=== PATIENT | male | born 1930 | race Caucasian/White ===

== ENCOUNTER 2018-12-05 19:47 | Emergency (ER) | payer OTHER ==
[~2018-12-05] VITALS: Ht 170.2 cm; Wt 77.1 kg
[~2018-12-05 19:47] MED LIST: ADVAIR 500-501 EACH IH; ALBUTEROL INHAL17 GM IH; ALBUTEROL2.5 MG/31 INH; ASPIRIN325 PO; CALCIUM 600 +1 EAC5 PO; CLARITIN10 MG PO; GARLIC OIL1 EAC1 PO; GARLIC OIL1000 MG PO; MULTIVITAMINS PO; NASONEX17 GM NASAL; NORCO 5-325 TA1 EACH PO; PREDNISONE 10 M10 MG PO; PROAIR HFA8.5 GM INH; SIMVASTATIN40 MG PO; SPIRIVA INH; SYMBICORT160 MCG/4. IH; SYMBICORT160 MCG/4. INH; VERAMYST10 GM IH; ZOCOR 10 MG TAB10 MG PO
[2018-12-05] MEDS ORDERED: BAYER CHEWABLE81 MG PO (20:04)
[2018-12-05] MEDS ORDERED: COZAAR 25 MG TA25 M1 PO (20:06)
[2018-12-05] MEDS ORDERED: BREO ELLIPTA 11 EACH INH (20:07)
[2018-12-05] MEDS ORDERED: COLACE100 MG PO (20:07)
[2018-12-05] MEDS ORDERED: CALCIUM 600 +1 EAC4 PO (20:08)
[2018-12-05] MEDS ORDERED: ALEVE220 MG PO (20:08)
[2018-12-05 20:44] LABS: URINE BILIRUBIN NEGATIVE (Negative); URINE BLOOD 2+ (Negative); URINE CLARITY CLEAR; URINE COLOR YELLOW; URINE GLUCOSE-RANDOM* NEGATIVE (Negative); URINE KETONES NEGATIVE (Negative); URINE NITRITE-REFLEX NEGATIVE (Negative); URINE PROTEIN (DIPSTICK) NEGATIVE (Negative); URINE SPECIFIC GRAVITY > 1.030 (1.005-1.035); URINE UROBILINOGEN 0.2 E.U./dl (0.2-1.0)
[2018-12-05 20:45] LABS: URINE LEUKOCYTES-REFLEX NEGATIVE (Negative)
[2018-12-05 20:48] LABS: CASTS None Seen /LPF (None Seen); SQUAMOUS 0-3 Few /LPF (0-3)
[2018-12-05 20:49] LABS: BACTERIA-REFLEX None Seen /HPF (None Seen); CRYSTALS None Seen /LPF (None Seen); MUCUS 4-6 Moderate strn/LPF (None Seen); URINE RBC 3-10 Few /HPF (0-2); URINE WBC-REFLEX 0-5 Rare /HPF (0-5)
[2018-12-05] MEDS ORDERED: FLOMAX0.4 MG PO (20:55)
[2018-12-05 21:12] VITALS: BP 138/60
== END 2018-12-05 21:12 | disposition home or self-care (01) ==
LOC: ER 19:47
PROVIDERS: Emergency Medicine
DX: R33.9 Retention of urine, unspecified (principal)

== ENCOUNTER 2018-12-12 03:23 | Emergency (ER) | payer OTHER ==
[~2018-12-12] VITALS: Ht 170.2 cm; Wt 79.4 kg
[~2018-12-12 03:23] MED LIST changes: +ALEVE220 MG PO; +BAYER CHEWABLE81 MG PO; +BREO ELLIPTA 11 EACH INH; +CALCIUM 600 +1 EAC4 PO; +COLACE100 MG PO; +COZAAR 25 MG TA25 M1 PO; +FLOMAX0.4 MG PO
[2018-12-12 04:00] VITALS: BP 103/82
== END 2018-12-12 04:32 | disposition home or self-care (01) ==
LOC: ER 03:23
DX: T83.038A Leakage of other urinary catheter, initial encounter (principal); E89.0 Postprocedural hypothyroidism; Z98.890 Other specified postprocedural states

== ENCOUNTER 2019-07-07 17:26 | Emergency (ER) | payer OTHER ==
[~2019-07-07] VITALS: Ht 170.2 cm; Wt 78.6 kg
[2019-07-07 18:55] VITALS: BP 150/59
== END 2019-07-07 18:56 | disposition home or self-care (01) ==
LOC: ER 17:26
DX: N40.1 Benign prostatic hyperplasia with lower urinary tract symptoms (principal); R33.8 Other retention of urine; Z87.891 Personal history of nicotine dependence

== ENCOUNTER 2019-09-15 08:04 | Emergency (ER) | payer OTHER ==
[~2019-09-15] VITALS: Ht 165.1 cm; Wt 77.1 kg
[2019-09-15] MEDS ORDERED: TESSALON PERLE100 MG PO (09:10)
[2019-09-15 09:31] VITALS: BP 144/53
== END 2019-09-15 09:32 | disposition home or self-care (01) ==
LOC: ER 08:04
DX: J06.9 Acute upper respiratory infection, unspecified (principal); Z87.891 Personal history of nicotine dependence

== ENCOUNTER 2019-12-14 16:12 | Inpatient (IN) | payer OTHER ==
[~2019-12-14] VITALS: Ht 172.7 cm; Wt 80.9 kg
[~2019-12-14 16:12] MED LIST changes: +TESSALON PERLE100 MG PO
[2019-12-14 16:30] LABS: ABSOLUTE NEUTROPHILS 6.3 thou/uL (1.4-8.2); BASOPHILS 0.9 % (0.0-2.0); EOSINOPHILS 4.1 % (0.0-3.0); HEMATOCRIT 42.3 % (42.0-52.0); HEMOGLOBIN 14.2 gm/dL (14.0-18.0); LYMPHOCYTES 10.3 % (24.0-44.0); MCH 32.2 pg (26.0-34.0); MCHC 33.7 g/dL (28.0-37.0); MCV 95.7 fL (80.0-100.0); MONOCYTES 9.3 % (1.0-8.0); PLATELET COUNT 258 thou/uL (150-400); POLYS 75.4 % (36.0-66.0); RBC 4.42 mil/uL (4.50-6.00); RDW 14.1 % (10.5-14.5); WBC 8.4 thou/uL (4.0-11.0)
[2019-12-14 16:38] LABS: ANION GAP 8 mmol/L (7-16); BUN 14 mg/dL (7-18); CALCIUM 9.3 mg/dL (8.5-10.1); CHLORIDE 99 mmol/L (98-107); CO2 26 mmol/L (21-32); CREATININE 0.9 mg/dL (0.7-1.3); GLUCOSE 96 mg/dL (74-106); POTASSIUM 4.6 mmol/L (3.5-5.1); SODIUM 133 mmol/L (136-145)
[2019-12-14 16:45] LABS: APTT 27.1 Seconds (24.5-32.8); PROTIME 10.2 Seconds (9.3-11.4)
[2019-12-14 16:48] LABS: ALBUMIN 3.6 g/dL (3.4-5.0); SGOT 23 U/L (15-37); SGPT 28 U/L (30-65); TOTAL BILIRUBIN 0.3 mg/dL (<0.1-1.0); TOTAL PROTEIN 6.8 g/dL (6.4-8.2); TROPONIN-I <0.06 ng/mL (<0.06)
[2019-12-14 18:15] LABS: URINE BILIRUBIN NEGATIVE (Negative); URINE BLOOD TRACE (Negative); URINE CLARITY CLEAR; URINE COLOR YELLOW; URINE GLUCOSE-RANDOM* NEGATIVE (Negative); URINE KETONES NEGATIVE (Negative); URINE LEUKOCYTES-REFLEX NEGATIVE (Negative); URINE NITRITE-REFLEX NEGATIVE (Negative); URINE PROTEIN (DIPSTICK) NEGATIVE (Negative); URINE SPECIFIC GRAVITY 1.015 (1.005-1.035); URINE UROBILINOGEN 0.2 E.U./dl (0.2-1.0)
[2019-12-14 19:48] VITALS: BP 153/57
[2019-12-14 20:25] VITALS: BP 164/61
[2019-12-15 00:15] VITALS: BP 171/65
[2019-12-15 03:56] VITALS: BP 154/72
--- NOTE | 2019-12-15 05:29 | NUR ---
PT ARRIVED TO UNIT APPROX 2014. ADMISSION AND ASSESSMENT COMPLETED. PT LIVES HOME ALONE WITH SOME FRIENDS AND NEIGHBORS WHO CHECK UP ON HIM. HE IS A&Ox4 BUT EXTREMELY FORGETFUL AND A POOR HISTORIAN; HE DOESN'T KNOW MUCH ABOUT HIS MEDICAL HISTORY OR WHAT MEDS HE TAKES. FALL PREC IN PLACE, HE IS IMPULSIVE AND UP TO BSC EVERY 45 MIN TO AN HOUR TO URINATE; BLADDER SCAN POST-VOID SHOWED LESS THAN 150 ML. Q4 HOUR NIH SCALE COMPLETED, HAS A SLIGHT DRIFT TO LEFT LEG WITH GENERAL WEAKNESS ON STANDING BUT OTHERWISE SHOWS A SCORE OF ONE. BP ELEVATED, GAVE PRN HYDRALAZINE. HR INITIALLY SR IN 70'S BUT OVERNIGHT DROPPED INTO 50'S WITH FREQ PVC'S. PT HAS x3 SKIN TEARS ON HIS LEFT ARM FROM ALMOST FALLING AT HOME WHEN HIS LEGS GAVE OUT. HIS BUTTOCKS ARE RED/EXCORIATED AND HAS NUMEROUS BRUISES ALONG HIS ARMS, OTHERWISE SKIN IS INTACT. NO OTHER CONCERNS, WILL CONTINUE TO MONITOR.
[2019-12-15 06:12] LABS: ABSOLUTE NEUTROPHILS 7.5 thou/uL (1.4-8.2); BASOPHILS 0.9 % (0.0-2.0); EOSINOPHILS 2.4 % (0.0-3.0); HEMATOCRIT 44.9 % (42.0-52.0); LYMPHOCYTES 8.8 % (24.0-44.0); MCH 32.1 pg (26.0-34.0); MCHC 33.4 g/dL (28.0-37.0); MCV 96.1 fL (80.0-100.0); MONOCYTES 9.2 % (1.0-8.0); PLATELET COUNT 260 thou/uL (150-400); POLYS 78.7 % (36.0-66.0); RBC 4.67 mil/uL (4.50-6.00); RDW 13.7 % (10.5-14.5); WBC 9.5 thou/uL (4.0-11.0)
[2019-12-15 06:27] LABS: ANION GAP 12 mmol/L (7-16); BUN 12 mg/dL (7-18); CALCIUM 9.7 mg/dL (8.5-10.1); CHLORIDE 102 mmol/L (98-107); CHOLESTEROL 168 mg/dL (<200); CO2 22 mmol/L (21-32); CREATININE 0.7 mg/dL (0.7-1.3); GLUCOSE 112 mg/dL (74-106); HDL CHOLESTEROL 72 mg/dL (>40); LDL CHOLESTEROL 87 mg/dL (<100); MAGNESIUM 1.9 mg/dL (1.8-2.4); POTASSIUM 3.7 mmol/L (3.5-5.1); SODIUM 136 mmol/L (136-145); TC:HDL 2.3 Ratio (Not establshd); TRIGLYCERIDE 48 mg/dL (<150); VLDL 10 mg/dL (<40)
[2019-12-15 06:31] LABS: SERUM ASSESSMENT Clear
[2019-12-15 08:07] VITALS: BP 145/56
[2019-12-15 08:54] VITALS: BP 143/56
--- NOTE | 2019-12-15 12:03 | 2DMMODE ---
[facility] [place] [place] [address] 2 D/M-MODE ECHOCARDIOGRAM Name: DARRELL HARRISON Room #: 360-P ADM IN M.R.#: [id number] Admission: 12/14/19 Attend Phys: Albaro Mejía MD Discharge: Date of : 32 Report #: [id number] THIS REPORT FOR: cc: Yaya Chavez MD, Douglas James MD Lammoglia, Francisco J. MD ~ APPROVED REPORT Study performed: 12/15/2019 11:12:39 EXAM: Comprehensive 2D, Doppler, and color-flow Echocardiogram Patient Location: Echo lab Room #: 360 Status: routine BSA: 1.90 HR: 60 bpm BP: 143/56 mmHg Rhythm: NSR Other Information Study Quality: Adequate Indications TIA. Hx: Afib, COPD, HTN, HLP. Echo Enhancing Agent Indication: Rule out Shunt Agent(s) / Amount(s) Used: Agitated Saline 6 cc 2D Dimensions RVDd: 32.95 mm IVSd: 12.00 (7-11mm) LVOT Diam: 21.97 (18-24mm) LVDd: 41.55 mm PWd: 10.87 (7-11mm) Ascending Ao: 35.34 (22-36mm) LVDs: 25.80 (25-40mm) Aortic Root: 35.34 mm Volumes Left Atrial Volume (Systole) Single Plane 4CH: 40.80 mL Single Plane 2CH: 56.85 mL LA ESV Index: 28.00 mL/m2 Aortic Valve [facility] [place] [address] 2 D/M-MODE ECHOCARDIOGRAM Name: DARRELL HARRISON Room #: 360-[facility] IN M.R.#: [id number] Admission: 12/14/19 Attend Phys: Albaro Mejía MD Discharge: Date of : 32 Report #: [id number] AoV Peak Felix.: 1.78 m/s AO Peak Gr.: 12.74 mmHg LVOT Max P.66 mmHg LVOT Max V: 1.19 m/s CHANEL Vmax: 2.52 cm2 Mitral Valve E/A Ratio: 0.7 MV Decel. Time: 254.00 ms MV E Max Felix.: 0.65 m/s MV A Felix.: 0.97 m/s MV PHT: 73.66 ms IVRT: 124.57 ms Pulmonary Valve PV Peak Felix.: 1.01 m/s PV Peak Gr.: 4.12 mmHg Pulmonary Vein P Vein S: 0.61 m/s P Vein D: 0.26 m/s P Vein S/D Ratio: 2.35 Tricuspid Valve TR Peak Felix.: 2.31 m/s RAP Estimate: 5.00 mmHg TR Peak Gr.: 21.00 mmHg PA Pressure: 26.00 mmHg Left Ventricle The left ventricle is normal size. There is normal LV segmental wall motion. Mild basal septal hypertrophy is present. Left ventricular systolic function is normal. LVEF is 65%. Mild diastolic dysfunction is present (impaired relaxation pattern). Right Ventricle The right ventricle is normal size. The right ventricular systolic function is normal. Atria The left atrium size is normal. No shunting noted by contrast bubble injection. The right atrium size is normal. Aortic Valve The aortic valve is normal in structure. Leaflets are mildly thickened and calcified. Mild aortic regurgitation. There is no aortic valvular stenosis. Mitral Valve [facility] [place] [address] 2 D/M-MODE ECHOCARDIOGRAM Name: DARRELL HARRISON Room #: 360-P ADM IN M.R.#: [id number] Admission: 12/14/19 Attend Phys: Albaro Mejía MD Discharge: Date of : 32 Report #: [id number] Mitral valve leaflets are mildly thickened. Moderate mitral regurgitation. No evidence of mitral valve stenosis. Tricuspid Valve The tricuspid valve is normal in structure. Trace tricuspid regurgitation. Estimated PAP is 25-30mmHg. Pulmonic Valve Pulmonic valve is grossly normal in structure. There is no pulmonic valvular regurgitation noted. Great Vessels The aortic root is normal in size. The ascending aorta is normal in size. IVC is normal in size and collapses >50% with inspiration. Pericardium There is no pericardial effusion. <Conclusion> The left ventricle is normal size. LVEF is 65%. The aortic valve is normal in structure. Leaflets are mildly thickened and calcified. Mild aortic regurgitation. Mitral valve leaflets are mildly thickened. Moderate mitral regurgitation. The tricuspid valve is normal in structure. Trace tricuspid regurgitation. Estimated PAP is 25-30mmHg. Pulmonic valve is grossly normal in structure. There is no pericardial effusion. No shunting noted by contrast bubble injection. <ELECTRONICALLY SIGNED> By: Moreno Brody MD 12/15/19 120 01 01 Moreno Brody MD /INF
[2019-12-15 15:44] VITALS: BP 141/53
--- NOTE | 2019-12-15 16:14 | NUR ---
ASSUMED CARE 0700. ALERT X 4 WITH FORGETFULNESS. DENIES SOB, DENIES CHEST PAIN, GENERAL PAIN IN HIPS AND BACK MANAGED WITH MEDICATIONS. UP WITH ASSISTANCE X1. CONTINENT WITH URINAL. FAMILY FRIEND BEDSIDE WITH NEUROLOGY ROUNDED AND VOICED THE PHYSICIAN WAS ABLE TO ANSWER PATIENTS CONCERNS. ST EVALUATED PT WITH INSTRUCTIONS TO AVOID STRAWS AND MIXED CONISISTANCIES. FALL PRECAUTIONS IN PLACE CALL LIGHT IN REACH.
[2019-12-15 19:45] VITALS: BP 148/63
[2019-12-15 23:06] LABS: GLYCOHEMOGLOBIN (HGB A1C) 5.5 % (4.8-5.6)
[2019-12-16 04:30] VITALS: BP 139/63
--- NOTE | 2019-12-16 06:36 | NUR ---
ASSUMED CARE AT 1900. PT INITIALLY REPORTED SOME RIGHT SHOULDER PAIN, BUT WHEN THE VOLTAREN GEL WAS DUE, PT DENIED NEEDING IT. GAVE A DOSE OF TYLENOL AT HS WHICH HELPED HIM SLEEP SOME. PT WOKE UP ABOUT MIDNIGHT, VERY CONFUSED, THOUGHT HE WAS AT HOME; TOOK SEVERAL MINUTES TO REDIRECT ABOUT HIS SITUATION. CONTINUED TO BE SB WITH FIRST DEGREE BLOCK OVERNIGHT, HR IN THE 50'S. NO OTHER CONCERNS, WILL CONTINUE TO MONITOR.
[2019-12-16 07:45] VITALS: BP 152/66
--- NOTE | 2019-12-16 12:28 | NUR ---
PATIENT SEEN THIS DATE BY TAMIR DEVI NP WITH DR. MUÑOZ. PATIENT IS A GOOD CANDIDATE FOR ACUTE REHAB. NO BED AVAILIBILITY FOR 5N UNTIL MID NEXT WEEK. OTHER IN PATIENT REHAB, SUCH [facility], MAY BE AN OPTION. PATIENT DID EXPRESS INTEREST IN [facility]. MANAGER OPERATING INFORMED. THANK YOU FOR THIS REFERRAL.
--- NOTE | 2019-12-16 13:09 | NUR ---
PT ALERT AND ORIENTED X4. UP IN CHAIR. FAMILY VISITING WITH PT. DENIES ANY OTHER NEEDS. CALL LIGHT IN REACH. CHAIR ALARM ON. Will continue to monitor.
--- NOTE | 2019-12-16 14:36 | NUR ---
DISCHARGE PLANNING. POST ACUTE RECOMMENDED AT DISCHARGE. PATIENT REFERRAL FAXED TO [facility]. NO WEEKEND DISCHARGE PLANNED. POSSIBLE DISCHARGE BEGINNING OF NEXT WEEK. CALL PLACED TO [facility] TO NOTIFY. FOLLOWING.
[2019-12-16 15:31] VITALS: BP 146/55
--- NOTE | 2019-12-16 16:14 | NUR ---
1613 report given to flavio on 4N. Pt belongings packed. waiting on 4N to call for pt to be transfer.
--- NOTE | 2019-12-16 16:21 | NUR ---
INITIAL ASSESSMENT: Received consult for discharge planning. GISSELL reviewed chart and spoke with nursing and attending physician. Pt was admitted from home due to TIA. 5N consult ordered to evaluate pt. [facility]N will not have beds available until next week. Will need insurance authorization. GISSELL met with pt and friend, Carole, at bedside. Introduced role of SW. Pt is alert/orientated x 4. Pt reports he lives at home alone. Prior to admission, pt was independent with ADLs. Pt's home has 5 steps to enter. 7 steps inside the home. Pt has a cane and walker. GISSELL discussed alternate options for rehab: [facility] or SNF. Pt and friend request referral to [facility]. GISSELL explained need for insurance authorization. No weekend discharge planned. mechanical planner faxed referral to [facility] for review. GISSELL is following to assist as needed with discharge planning.
--- NOTE | 2019-12-16 17:54 | NUR ---
PT ARRIVED ON THE UNIT, TRANSFERRED TO BED WITH GAIT BELT AND WALKER. PT VSS, NO C/O PAIN AT THIS TIME. IV IS LOCATED IN RIGHT AC. NO SKIN BREAKDOWN NOTED. FAMILY ACCOMPANIED PT, FALL PRECAUTIONS IN PLACE, CALL LIGHT/PERSONAL ITEMS IN REACH. WILL CONTINUE TO MONITOR.
[2019-12-16 20:00] VITALS: BP 154/72
--- NOTE | 2019-12-17 05:07 | NUR ---
ASSUMED CARE OF PATIENT AT APPROX. 1930. ASSESSMENT CHARTED. MEDICATIONS GIVEN PER MAR. PATIENT IS ALERT AND ORIENTED BUT CAN BE FORGETFUL AT TIMES. VSS, DENIES PAIN. PATIENT GETS UP TO THE TOILET WITH ASSIST OF ONE PERSON. HE USES A GB AND WALKER TOLERATING WELL THIS SHIFT. PATIENT C/O BEING COLD. PATIENT REQUESTED A BANDAGE CHANGE FOR HIS SKIN TEARS ON L ARM AND ELBOW. HE LATER C/O OF "LITTLE COMING OUT" REFERRING TO URINATING. PATIENT DENIED ANY PAIN OR PRESSURE AND BLADDER DID NOT FEEL DISTENDED. PATIENT VOIDED X1 EARLIER BUT HAS NOT BEEN DRINKING MUCH. WHEN TAKING PO MEDICATION AND SIPS OF WATER PATIENT WAS OBSERVED AND TOLERATED WELL WITH NO S/S OF ASPIRATION. PATIENT TURNS SELF DURING NIGHT. SOME SLIGHT CONFUSION NOTED LIFTER DRIVER REGARDING CALL LIGHT. EDUCATION REINFORCED. PLAN IS TO D/C TO A [facility] FACILTY NEXT WEEK. NO WEEKEND D/C PLANNED. FALL PRECAUTIONS IN PLACE. PATIENT CALLS OUT APPROPRIATELY. WILL CONTINUE TO MONITOR AND FOLLOW POC
--- NOTE | 2019-12-17 06:24 | NUR ---
THIS NURSE AGREES WITH ASSESSMENT AND NOTES BY DROSSER ON THIS PATIENT.
[2019-12-17 07:05] VITALS: BP 137/71
[2019-12-17 11:14] VITALS: BP 137/71
--- NOTE | 2019-12-17 11:26 | NUR ---
ASSUMED CARE AT 0700. PT AOX4, VSS, GENERALIZED PAIN CONTROLLED WITH ORAL ANALGESIC. PT HAS LEFT SIDE WEAKNESS DURING TRANSFER FROM BED TO CHAIR. RECHECKED VS 124/62, 71, 94%, 97.4. DR. CESAR ASSESSED PT AND ORDERED PT TO TRANSFER TO FOR TELE TELEPHONE EXCHANGE OPERATOR. NO S/S OF DISTRESS AT THIS TIME. FRIEND ACCOMPANIED PT DURING TRANSFER TO .
[2019-12-17 12:29] VITALS: BP 147/36
--- NOTE | 2019-12-17 12:39 | NUR ---
Pt transfered from 4N, back to 360. pt alert and oriented. pt had left sided weakness, drooping and slurred speech.excessive coughing with secretions. Assessment completed, see notes. Call light in reach, bed alarm on. Family visiting. Will continue to monitor.
[2019-12-17 15:02] VITALS: BP 133/59
--- NOTE | 2019-12-17 17:22 | NUR ---
Pt being fed dinner, this RN notice pt left leg jerking, which is new since transfered to the floor. Dr Vaca paged and notify, no new order given.
[2019-12-17 19:47] VITALS: BP 136/58
--- NOTE | 2019-12-18 01:40 | NUR ---
ASSUMED CARE OF PATIENT AT 1900. VSS, AFEBRILE. USING URINAL NEEDED. FRIENDS AT BEDSIDE. CONSIDERABLE LEFT FACIAL DROOP, INABILITY TO USE LEFT ARM OR LEG. ANSWERS QUESTIONS APPROPRIATELY. WORKING TOWARDS POC GOALS.
--- NOTE | 2019-12-18 02:07 | NUR ---
BLADDER SCANNED PATIENT, GREATER THAN 375. BOAT ENGINES INSTALLER NOTIFIED, NO STRAIGHT CATH AT THIS TIME. ENCOURAGED TO USE URINAL.
[2019-12-18 03:43] VITALS: BP 136/48
[2019-12-18 05:33] LABS: HEMATOCRIT 43.6 % (42.0-52.0); HEMOGLOBIN 14.5 gm/dL (14.0-18.0); MCH 32.1 pg (26.0-34.0); MCHC 33.3 g/dL (28.0-37.0); MCV 96.3 fL (80.0-100.0); RBC 4.53 mil/uL (4.50-6.00); RDW 13.9 % (10.5-14.5); WBC 11.3 thou/uL (4.0-11.0)
[2019-12-18 06:11] LABS: ALBUMIN 3.2 g/dL (3.4-5.0); CALCIUM 9.3 mg/dL (8.5-10.1); CREATININE 0.7 mg/dL (0.7-1.3); MAGNESIUM 1.9 mg/dL (1.8-2.4); POTASSIUM 4.2 mmol/L (3.5-5.1); TOTAL BILIRUBIN 0.7 mg/dL (<0.1-1.0); TOTAL PROTEIN 5.9 g/dL (6.4-8.2)
[2019-12-18 07:16] VITALS: BP 124/57
[2019-12-18 15:25] VITALS: BP 133/56
--- NOTE | 2019-12-18 19:37 | NUR ---
pt is A&OX2 ( person and place), pt is confused at time, pt's vs are stable,RN has reprted to dr about pt has difficult time swallowing , pt's face drooping does not get improved, pt has hard time to get sputum out from his mouth, new order received, keep NPO, pt has started iv fliud, pt is going to head MRI tomorrow to rule out new CVA, RN has reported to next shift to keep eye on pt.
[2019-12-18 20:00] VITALS: BP 121/56
[2019-12-18 21:48] LABS: URINE BILIRUBIN NEGATIVE (Negative); URINE BLOOD TRACE (Negative); URINE CLARITY CLEAR; URINE COLOR YELLOW; URINE GLUCOSE-RANDOM* NEGATIVE (Negative); URINE KETONES 1+ (Negative); URINE LEUKOCYTES-REFLEX NEGATIVE (Negative); URINE NITRITE-REFLEX NEGATIVE (Negative); URINE PROTEIN (DIPSTICK) NEGATIVE (Negative); URINE SPECIFIC GRAVITY 1.025 (1.005-1.035); URINE UROBILINOGEN 0.2 E.U./dl (0.2-1.0)
--- NOTE | 2019-12-19 03:53 | NUR ---
ASSUMED CARE OF PT AT 1900HRS. PT IS ALERT BUT ONLY ORIENTED TO PERSON. FALL PRECAUTION IN PLACE. PT PUT ON NPO PENDING SPEECH EVAL. PT HAS LEFT SIDED WEAKNESS WITH FACIAL DROOP AND APHASIA. PT NEEDS TO BE SUCTIONED TO KEEP MOUTH CLEAR. PT IS REFUSING TURNS DUE TO PAIN. PT WAS ABLE TO GET COMFORTABLE AND SLEEP PART OF THE SHIFT. VSS AND NO S/S OF ACUTE DISTRESS. WILL CONTINUE TO MONITOR.
[2019-12-19 05:30] VITALS: BP 117/56
[2019-12-19 06:21] LABS: HEMATOCRIT 45.3 % (42.0-52.0); HEMOGLOBIN 15.2 gm/dL (14.0-18.0); MCH 32.2 pg (26.0-34.0); MCHC 33.5 g/dL (28.0-37.0); MCV 96.1 fL (80.0-100.0); RBC 4.72 mil/uL (4.50-6.00); WBC 14.1 thou/uL (4.0-11.0)
[2019-12-19 06:36] LABS: CALCIUM 8.6 mg/dL (8.5-10.1); CREATININE 0.8 mg/dL (0.7-1.3); POTASSIUM 3.9 mmol/L (3.5-5.1)
[2019-12-19 07:48] VITALS: BP 126/61
--- NOTE | 2019-12-19 14:59 | NUR ---
GISSELL reviewed chart and spoke with nursing and attending physician. Pt was transferred to [facility] over the weekend, and then transferred back to [facility] following CVA. Pt is unable to swallow. Recommendation made for pt to consider hospice. GISSELL met wit pt and his friend, Carole, at bedside. GISSELL explained framework of hospice services. Pt able to nod yes and no and acknowledges understanding of hospice. Carole states she will help take care of pt at his home. Per Carole, she took care of pt's and additional family members were on hospice. Carole states she has already reached out to [facility], as she knows one of the SWs. Pt agreeable with referral to to [facility]. GISSELL faxed clinical info and order to [facility]. GISSELL received call back from Migd[facility], who states one of the hospice RNs will meet with pt and family this afternoon. Pt will need DME delivered to pt's home prior to discharge. Pt will need ambulance transportation home. Awaiting input from [facility] at this time. GISSELL is following to assist as needed with discharge planning.
[2019-12-19 16:28] VITALS: BP 150/55
[2019-12-19 19:57] VITALS: BP 179/69
--- NOTE | 2019-12-19 20:51 | NUR ---
PATIENT ALERT AND ORIENTED WITH SPOKEN TO WITH ZEHRA AND CRISTY AT BEDSIDE THROUGHOUT THE DAY. ZEHRA IS VERY ATTENTIVE TO PATIENT NEEDS. SPEECH EVALUATION INDICATED PATIENT ASPIRATION RISK. RADIOLOGIST CALLED INDICATING PATIENT DID HAVE CVA. DECISION WAS MADE TO MAKE PATIENT HOSPICE AND PATIENT WILL RETURN TO HOME WITH HOSPICE CARE TOMORROW.
--- NOTE | 2019-12-20 02:24 | NUR ---
PAtient making progress towards outcome goals. Patient and friends/DPOA all in agreement to place patient in hospice. [facility] selected. Comfort measures, Roxanol given with good relief. Monitor discontinued. Anticipate DC to home today after bed/suction equipment delivered to patients home. Lance Crewmember at bedside. Kept NPO for aspiration. Patient allowed oral intake for pleasure which he declined.
[2019-12-20 04:27] VITALS: BP 147/65
--- NOTE | 2019-12-20 07:23 | NUR ---
PATIENT ON COMFORT CARE; THEREFORE, DISCHARGED FROM OCCUPATIONAL THERAPY SERVICES.
[2019-12-20 08:04] VITALS: BP 145/51
--- NOTE | 2019-12-20 13:53 | NUR ---
TAKEN PER AMBULANCE TRANSPORT TO [facility]IVATE [facility]ENCE AFTER HOSPICE PROVIDED APPROPRIATE EQUIPMENT. SUPPORT SYSTEM IN PLACE WITH FRIENDS AND HOSPICE. lEFT AT 1330 AFTER IV ACCESS REMOVED. SUCTION SET UP PER HOSPICE IN HOME.
--- NOTE | 2019-12-20 14:54 | NUR ---
DISCHARGE NOTE: SW reviewed chart and spoke with nursing and attending physician. Pt is medically stable for [facility] SW met with pt and friends at bedside. [facility] delivered DME to pt's home this morning. GISSELL met with pt's DPOAs to discuss plan. All agreeable with discharge plan. Pt to be transported home via [facility]. Outside the Hospital DNR form signed by attending physician. welding machine operator electron beam arranged ambulance. No additional SW needs identified at this time, but is available to assist should needs arise.
--- NOTE | 2019-12-21 18:31 | HC ---
[facility] [place] [address] CONSULTATION Name: DARRELL HARRISON Room #: 360-[facility] IN M.R.#: [id number] Admission: 12/14/19 Attend Phys: Albaro Mejía MD Discharge: 12/20/19 Date of : 32 Report #: [id number] THIS REPORT FOR: cc: Yaya Chavez MD, Douglas James MD Khosla, Parveen K. MD ~ THIS REPORT FOR: //name// CC: Albaro Chavez DATE OF SERVICE: 12/15/2019 HISTORY OF PRESENT ILLNESS: This is an 89-year-old male patient who was seen by me for the possibility of stroke. The patient was admitted yesterday and I reviewed those notes. His part of the workup was done yesterday and part of it was done today and Neurology consultation was requested to evaluate the patient for stroke. This patient apparently does not have family and is taken care of by the friends. The friends indicated that this patient had speech difficulty and he was unable to walk. His history is complicated by the fact that he also has a known neuropathy and he has some walking difficulty in the baseline. Apparently, he saw Dr. Butler at [facility] and was diagnosed with neuropathy and some spine problem. He drinks alcohol every day, but he says he drinks about 1 alcoholic drink a day. REVIEW OF SYSTEMS: Indicate that apparently he is not a diabetic. He did not notice any speech difficulty, other people did. He feels he is better, but he cannot walk still according to the family. I need to talk to the Physical Therapy in this patient further in that regard. He had a prostate surgery in the past and had a back surgery in the past as I understand. That was his relevant 14-point review of system. PAST MEDICAL HISTORY: Positive for what has been described as neuropathy, but I am not sure how certain the diagnosis. FAMILY HISTORY: Unremarkable. SOCIAL HISTORY: He drinks alcohol every day. PHYSICAL EXAMINATION: Indicate the patient is alert and responsive. He can follow simple command. To me, his speech does not look too bad and does not look dysarthric. He moves all 4 extremities slowly, more so on the left side as compared to the right side. I do not know where but his baseline is. He apparently walks with a cane, but does not use it all the time according to his acquaintance. His EKG appeared to be showing atrial fibrillation. No respiratory difficulty. Blood pressure is 141/53. Temperature is 97.7, pulse [facility] [address] [place] [address] CONSULTATION Name: DARRELL HARRISON Room #: [address] [place] [address] [place] ..#: [id number] Admission: 12/14/19 Attend Phys: Albaro Mejía MD Discharge: 12/20/19 Date of : 32 Report #: [id number] is 67. His MRI was reported as no acute event, but I reviewed the MRI. 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 I got it reviewed by another radiologist and he thinks that finding is consistent with CVA and is going to dictate an addendum. I discussed with him and the friends that there is a disagreement with the radiologist, but if he has a pontine CVA that will correlate with the symptoms and that is why I got it reviewed by another radiologist and it looks like a real finding. 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 The finding of atrial fibrillation on his EKG further complicates the things and we need to make sure he is not embolized. This patient is not an intervention candidate because of the duration of the patient's symptoms, and from the present indication, it looks like it is from a perforating artery rather than any basilar artery occlusion. The main emphasis is going to be secondary stroke prophylaxis. If he has atrial fibrillation, he needs to be on anticoagulation and the timing of that need to be decided on the basis of other testing, which the patient had. I did order a stat MRA to look for the basilar artery to make sure that basilar artery is intact. I will suggest a Cardiology consult because of new onset atrial fibrillation. We will await the echocardiogram and presently I will give him a dose of Plavix so that he is on a combination of aspirin and Plavix, but later on, we need to consider anticoagulation in this patient because of atrial fibrillation, but we may have to wait for that for about 3 days depending upon the echocardiogram and Cardiology evaluation. Thank you very much for this referral. About 50 minutes of time was spent taking care of this patient and majority was discussed in counseling and coordinating, and Dr. Whitfield will follow up this patient with you from tomorrow. <ELECTRONICALLY SIGNED> By: Mariano Nunez MD 12/21/19 1831 1726 1859 Mariano Nunez MD /nt
--- NOTE | 2019-12-22 11:21 | EKG ---
[facility] [place] [address] ELECTROCARDIOGRAM REPORT Name: DARRELL HARRISON Room #: 360-[facility] IN M.R.#: [id number] Admission: 12/14/19 Attend Phys: Albaro Mejía MD Discharge: 12/20/19 Date of : 32 Report #: [id number] THIS REPORT FOR: cc: Yaya Chavez MD, Douglas James MD Couchonnal,Mike Rosario MD ~ THIS REPORT FOR: //name// [facility] ED Test Date: 2019-12-14 Test Time: 16:31:42 Pat Name: DARRELL HARRISON Department: Room: 360 Gender: M Ironworker Foreman: OLAF : 1930 Requested By: Balwinder Mina Order Number: [id number] MD: Mike Nunez Measurements Intervals [place] Rate: 66 P: NV: QRS: 44 QRSD: 95 T: 43 QT: 377 QTc: 395 Interpretive Statements Sinus rhythm with PVCs. Compared to ECG 09/29/2014 18:06:20 Electronically Signed On 12-15-2019 11:37:38 STOCK REPLENISHER by Mike Nunez [email or web address] <ELECTRONICALLY SIGNED> By: Mike Nunez MD 12/15/19 1137 1631 1631 Mike Nunez MD /EPI
== END 2019-12-20 13:53 | disposition hospice, home (50) | DRG 64 ==
LOC: ER 16:12 → 3W 19:26 → EROBS 19:26 → 3W 20:04 → 4N 12-16 17:12 → 3W 12-17 12:25
PROVIDERS: Emergency Medicine; Internal Medicine; Nurse Practitioner; ADMIT Hospitalist
DX: I63.9 Cerebral infarction, unspecified (principal); G93.41 Metabolic encephalopathy; G81.94 Hemiplegia, unspecified affecting left nondominant side; G93.49 Other encephalopathy; I48.0 Paroxysmal atrial fibrillation; J44.9 Chronic obstructive pulmonary disease, unspecified; G62.9 Polyneuropathy, unspecified; I10 Essential (primary) hypertension; E78.5 Hyperlipidemia, unspecified; Z66 Do not resuscitate; R29.6 Repeated falls; F32.9 Major depressive disorder, single episode, unspecified; N40.0 Benign prostatic hyperplasia without lower urinary tract symptoms; M81.0 Age-related osteoporosis without current pathological fracture; M48.00 Spinal stenosis, site unspecified; R13.10 Dysphagia, unspecified; R47.1 Dysarthria and anarthria; F10.10 Alcohol abuse, uncomplicated; Z79.82 Long term (current) use of aspirin; Z98.1 Arthrodesis status; Z79.899 Other long term (current) drug therapy; Z87.891 Personal history of nicotine dependence; Z79.01 Long term (current) use of anticoagulants
CPT/HCPCS: 10779; 10790; 10879